=== PATIENT | male | born 2005 | race Asian ===

== ENCOUNTER 2024-06-12 04:17 | Emergency (ER) | payer SELFPAY ==
[~2024-06-12] VITALS: Ht 172.7 cm; Wt 90.9 kg
[2024-06-12] MEDS ORDERED: EFFEXOR 75M75 MG/TAB PO (04:31)
[2024-06-12 05:05] LABS: BASO % 0.4 % (0.0-2.0); EOS # 0.4 K/mm3 (0.0-0.7); EOS % 4.3 % (0.0-4.0); GRAN # 4.4 K/mm3 (1.4-6.5); HEMATOCRIT 44.6 % (36.0-47.0); HEMOGLOBIN 15.3 g/dl (12.5-16.1); LYMPH # 3.8 K/mm3 (1.2-3.4); LYMPH % 39.9 % (20.0-51.0); MEAN CELL VOLUME 84 fl (80.0-95.0); MEAN CORPUSCULAR HEMOGLOBIN 29 pg (26-32); MEAN CORPUSCULAR HGB CONC 34 g/dl (33.0-37.0); MEAN PLATELET VOLUME 8.7 fl (7.4-10.4); MONO # 0.7 K/mm3 (0.1-0.6); MONO % 7.2 % (1.7-9.3); PLATELET COUNT 270 K/mm3 (130-400); RED BLOOD COUNT 5.32 M/mm3 (4.20-5.60); REDCELL DISTRIBUTION WIDTH-CV 13.2 % (11.5-14.5)
[2024-06-12 05:21] LABS: ALANINE AMINOTRANSFERASE 59 U/L (0-55); ALBUMIN 4.3 g/dL (3.5-5.0); ALCOHOL(ethanol),MEDICAL 153 mg/dL (0-10); ALKALINE PHOSPHATASE 72 U/L (40-150); ANION GAP 14 mmol/L (7-16); AST,SGOT 33 U/L (5-34); BILIRUBIN,TOTAL 0.4 mg/dL (0.2-1.2); BLOOD UREA NITROGEN 13 mg/dL (9-21); CALCIUM 9.2 mg/dL (8.4-10.2); CHLORIDE 109 mEq/L (98-107); GLUCOSE 104 mg/dL (70-99); POTASSIUM 3.7 mEq/L (3.5-4.5); SODIUM 141 mEq/L (136-145)
[2024-06-12 05:37] LABS: SALICYLATE < 5.0 mg/dL (15.0-30.0)
[2024-06-12 06:17] LABS: COLLECTION METHOD CLEAN CATCH
[2024-06-12 06:25] LABS: PH 5.5 (5.0-8.5); URINE APPEARANCE CLEAR (CLEAR/HAZY); URINE BLOOD NEGATIVE (NEGATIVE); URINE COLOR YELLOW (YELLOW); URINE GLUCOSE NEGATIVE (NEGATIVE); URINE KETONE NEGATIVE (NEGATIVE); URINE NITRATE NEGATIVE (NEGATIVE); URINE PROTEIN(semi-quant) NEGATIVE (NEGATIVE); URINE UROBILINOGEN 0.2 E.U/dL (0.2-1.0)
[2024-06-12 06:43] LABS: TRICYCLIC ANTIDEPRESS URINE NEGATIVE (NEGATIVE)
[2024-06-12] MEDS ORDERED: Ibuprofen 400 MG TAB PO ONE (09:45)
[2024-06-12 11:35] VITALS: BP 144/104
[2024-06-12 15:16] VITALS: PULSE 75
== END 2024-06-12 15:14 | disposition home or self-care (01) ==
LOC: COL.ER 04:17
PROVIDERS: Emergency Medicine
DX: R45.851 Suicidal ideations (principal); F10.129 Alcohol abuse with intoxication, unspecified; Y90.9 Presence of alcohol in blood, level not specified